=== PATIENT | female | born 1980 | race Hispanic/Latino ===

== ENCOUNTER → 2019-04-15 | Outpatient (CLI) | payer BC | END | disposition home or self-care (01) | LOC: RAH 15:20 | PROVIDERS: ATTEND Internal Medicine | DX: M41.85 Other forms of scoliosis, thoracolumbar region (principal); G95.9 Disease of spinal cord, unspecified; R29.898 Other symptoms and signs involving the musculoskeletal system | CPT/HCPCS: 72081; 72100 ==